=== PATIENT | female | born 1995 ===

== ENCOUNTER 2022-06-16 01:20 | Emergency (ER) | payer OTHER ==
[2022-06-16] MEDS ORDERED: SODIUM CHLORIDE 0.9% 500 ML INFUS.BAG IV ONE (01:24)
[2022-06-16] MEDS ORDERED: ONDANSETRON 4 MG/2 ML VIAL IVPB ONE (01:25)
[2022-06-16] MEDS ORDERED: FAMOTIDINE 20 MG/50 ML IVPB 20 MG/50 ML MG IVPB ONE (01:25)
[2022-06-16] MEDS ORDERED: ACETAMINOPHEN 1000 MG/100 ML BAG IVPB ONE (01:25)
[2022-06-16 01:29] VITALS: BP 188/106; PULSE 46; RESP 18; TEMP 98.6; BMI 41.5
[2022-06-16] MEDS ORDERED: ONDANSETRON 4 MG/2 ML VIAL ONE (01:31)
[2022-06-16] MEDS ORDERED: ACETAMINOPHEN INJECTION 100 ML IVPB ONE (01:31)
[2022-06-16 02:42] LABS: BASO % 0.2 % (0-2.0); EOS % 0.3 % (0-4.5); HEMATOCRIT 39.1 % (32.4-45.2); HEMOGLOBIN 14.2 GM/dL (10.7-15.3); LYMPH % 12.6 % (8-40); MCH 31.1 pg (25.7-33.7); MCHC 36.2 g/dl (32.0-36.0); MEAN CELL VOLUME 85.8 fl (80-96); MEAN PLT VOLUME 9.3 fl (7.5-11.1); MONO % 5.8 % (3.8-10.2); NEUT % 81.1 % (42.8-82.8); PLATELET COUNT 245 10^3/uL (134-434); RBC 4.56 M/mm3 (3.60-5.2); RDW 12.5 % (11.6-15.6); WHITE BLOOD COUNT 15.9 K/mm3 (4.0-10.0)
[2022-06-16 03:08] LABS: CHLORIDE 103 mmol/L (98-107); SODIUM 138 mmol/L (136-145)
[2022-06-16 03:10] LABS: CALCIUM 9.1 mg/dL (8.5-10.1)
[2022-06-16 03:11] LABS: ANION GAP 13 MMOL/L (8-16); BLOOD UREA NITROGEN 14.8 mg/dL (7-18); CO2 23 mmol/L (21-32); GLUCOSE,RANDOM 170 mg/dL (74-106)
[2022-06-16 03:14] LABS: CREATININE 0.7 mg/dL (0.55-1.3); SGOT/AST 23 U/L (15-37); SGPT/ALT 67 U/L (13-61)
[2022-06-16 03:15] LABS: BILIRUBIN,TOTAL 0.4 mg/dL (0.2-1); TOT PROT 6.8 g/dl (6.4-8.2)
[2022-06-16 03:17] LABS: ALK PHOS 87 U/L (45-117)
[2022-06-16 04:42] LABS: EPI CELLS 27 /uL (0-25.1); HYALINE CASTS 0 /uL (0-3.1); PH,URINE 5.5 (5.0-8.0); URINE APPEARANCE CLEAR; URINE BACTERIA 632 /uL (0-1359); URINE BILIRUBIN NEGATIVE (NEGATIVE); URINE COLOR YELLOW; URINE GLUCOSE (UA) NEGATIVE (NEGATIVE); URINE KETONE TRACE (NEGATIVE); URINE LEUK ESTERASE NEGATIVE (NEGATIVE); URINE NITRITE NEGATIVE (NEGATIVE); URINE PROTEIN TRACE (NEGATIVE); URINE RBC 38 /uL (0-23.9); URINE UROBILINOGEN 0.2 mg/dL (0.2-1.0); URINE WBC 17 /uL (0-25.8)
[2022-06-16] MEDS ORDERED: KETOROLAC TROMETHAMINE 30 MG/1 ML VIAL IVPUSH ONE (05:23)
[2022-06-16] MEDS ORDERED: KETOROLAC TROMETHAMINE 30 MG/1 ML VIAL ONE (05:25)
== END 2022-06-16 05:30 | disposition home or self-care (01) ==
LOC: FER 01:20
PROC: 3E0333Z Introduction of Anti-inflammatory into Peripheral Vein, Percutaneous Approach (ICD-10-PCS; principal; 2022-06-16)
PROC: 3E033GC Introduction of Other Therapeutic Substance into Peripheral Vein, Percutaneous Approach (ICD-10-PCS; 2022-06-16)
PROC: 3E0333Z Introduction of Anti-inflammatory into Peripheral Vein, Percutaneous Approach (ICD-10-PCS; 2022-06-16)
PROC: 3E033GC Introduction of Other Therapeutic Substance into Peripheral Vein, Percutaneous Approach (ICD-10-PCS; 2022-06-16)
DX: T62.91XA Toxic effect of unspecified noxious substance eaten as food, accidental (unintentional), initial encounter (principal)
CPT/HCPCS: 36415; 80053; 81003; 84702; 85025; 93005; 99284-25